=== PATIENT | female | born 1985 | race Caucasian/White ===

== ENCOUNTER → 2019-04-05 | Outpatient (CLI) | payer OTHER ==
--- NOTE | 2019-04-05 15:52 | XR ---
EXAMINATION TYPE: XR cervical spine comp DATE OF EXAM: 04/05/2019 COMPARISON: NONE HISTORY: Neck pain TECHNIQUE: Four views are submitted. FINDINGS: The odontoid is intact. There are no compression deformities. The prevertebral soft tissue structur es are within normal limits. IMPRESSION: 1. No acute process. If symptoms persist follow-up MRI recommended.
--- NOTE | 2019-04-05 15:55 | XR ---
EXAM TYPE: LUMBAR SPINE X RAY SERIES COMPARISON: NONE HISTORY: low back pain TECHNIQUE: 4 views are submitted. FINDINGS: Alignment is anatomic. The pedicles are intact. The transverse processes are intact. There is no s pondylolysis or spondylolisthesis. Multilevel facet arthropathy L3-L5. IMPRESSION: 1. Multilevel facet arthropathy L3-L5.
--- NOTE | 2019-04-05 15:57 | XR ---
EXAMINATION TYPE: XR thoracic spine 2V DATE OF EXAM: 04/05/2019 COMPARISON: NONE HISTORY: Pain Alignment is anatomic. There is no compression deformities. Hypertrophic and mild multilevel degener ative disc disease. IMPRESSION: 1. Multilevel hypertrophic and mild degenerative disc disease..
== END | disposition home or self-care (01) ==
LOC: RADXRMAIN 14:58
PROVIDERS: ATTEND Internal Medicine
DX: M51.34 Other intervertebral disc degeneration, thoracic region (principal); M46.96 Unspecified inflammatory spondylopathy, lumbar region; M54.2 Cervicalgia
CPT/HCPCS: 72050; 72070; 72110

== ENCOUNTER → 2019-04-11 | Outpatient (CLI) | payer OTHER ==
--- NOTE | 2019-04-11 22:29 | MR ---
EXAMINATION TYPE: MR lumbar spine wo con DATE OF EXAM: 04/11/2019 COMPARISON: Lumbar spine x-ray April 05, 2019 HISTORY: Low back pain since recent injury into bilateral buttocks per patient. TECHNIQUE: Multiplanar, multisequence imaging of the lumbar spine is performed without IV contrast. FINDINGS: Sagittal images of the lumbar spine show vertebral body heights and alignment to appear sat isfactory. There is disc desiccation L5-S1 level but the disc space heights are maintained. No suspic ious posterior disc herniations are seen. The conus medullaris is normal in position and signal endin g mid L1 level. The bone marrow signal intensity is within normal limits. Axial images show mild facet degenerative changes L3-L4 and L4-L5 levels. Axial images at L5-S1 level show mild broad disc bulge but spinal canal is minimally effaced, there i s asymmetric mild left-sided neural foraminal narrowing. Mild facet arthropathy bilaterally is presen t. No suspicious incidental retroperitoneal findings. IMPRESSION: Mild degenerative changes L3-L4 through the L5-S1 level as detailed above.
== END | disposition home or self-care (01) ==
LOC: RADMRIMAIN 21:00
PROVIDERS: ATTEND Internal Medicine
DX: M48.07 Spinal stenosis, lumbosacral region (principal); M51.27 Other intervertebral disc displacement, lumbosacral region; M47.816 Spondylosis without myelopathy or radiculopathy, lumbar region; M47.817 Spondylosis without myelopathy or radiculopathy, lumbosacral region; M46.97 Unspecified inflammatory spondylopathy, lumbosacral region
CPT/HCPCS: 72148